=== PATIENT | male | born 1985 | race African-American/Black ===

== ENCOUNTER 2017-07-19 19:09 | Emergency (ER) | payer SELFPAY ==
[2017-07-19 20:54] LABS: KETONE, URINE AUTO RFX TRACE mg/dL (NEGATIVE); LEUKOCYTE ESTERASE UR AUTO RFX 2+ (NEGATIVE); MUCUS, URINE RFX SMALL (NEGATIVE); NITRITE, URINE AUTO RFX NEGATIVE (NEGATIVE); RBC, URINE AUTO RFX 4 /HPF (0-3); SPECIFIC GRAVITY UR AUTO RFX 1.029 (1.002-1.035); SQUAM EPITHELIAL CELL UR AURFX 0 /HPF (0-6); WBC, URINE AUTO RFX 136 /HPF (0-3)
[2017-07-19] MEDS: AZITHROMYCIN 250 MG TAB PO (21:40)
[2017-07-19] MEDS: cefTRIAXone SOD 1 GM VIAL (J0696) IM (21:40)
[2017-07-19 22:22] LABS: CHLAMYDIA DNA AMPLIFICATION NEGATIVE (NEGATIVE); GC DNA AMPLIFICATION POSITIVE (NEGATIVE)
== END 2017-07-19 22:06 | disposition home or self-care (01) ==
LOC: M ED 19:09
DX: Z20.2 Contact with and (suspected) exposure to infections with a predominantly sexual mode of transmission (principal)
CPT/HCPCS: J0696

== ENCOUNTER 2017-08-22 17:12 | Emergency (ER) | payer OTHER, SELFPAY ==
[2017-08-22 17:50] LABS: BASO % 0.2 % (0.0-1.0); EOS # 0.2 10^3/uL (0.0-0.50); EOS % 1.8 % (0.0-3.0); HEMATOCRIT 42.3 % (42.0-52.0); HEMOGLOBIN 14.3 g/dl (14.0-18.0); IMMATURE GRANULOCYTE % 0.5 % (0-3.0); LYMPH # 2.3 10^3/uL (1.5-4.5); LYMPH % 27.7 % (24.0-44.0); MEAN CORPUSCULAR HEMOGLOBIN 28.8 pg (27.0-33.0); MEAN CORPUSCULAR HGB CONC 33.8 g/dl (32.0-36.5); MEAN CORPUSCULAR VOLUME 85.1 fl (80.0-96.0); MONO # 0.5 10^3/uL (0.0-0.8); MONO % 6.3 % (0.0-5.0); NEUTROPHILS # 5.2 10^3/uL (1.8-7.7); NEUTROPHILS % 63.5 % (36.0-66.0); PLATELET COUNT, AUTOMATED 171 10^3/uL (150-450); RED BLOOD COUNT 4.97 10^6/uL (4.30-6.10); WHITE BLOOD COUNT 8.2 10^3/uL (4.0-10.0)
[2017-08-22 18:26] LABS: ALBUMIN 4.2 GM/DL (3.2-5.2); ALBUMIN/GLOBULIN RATIO 1.35 (1.00-1.93); ALKALINE PHOSPHATASE 54 U/L (45-117); ALT/SGPT 36 U/L (12-78); ANION GAP 5 MEQ/L (8-16); AST/SGOT 34 U/L (7-37); BILIRUBIN,TOTAL 0.4 MG/DL (0.2-1.0); BLOOD UREA NITROGEN 19 MG/DL (7-18); CALCIUM LEVEL 9.1 MG/DL (8.5-10.1); CARBON DIOXIDE LEVEL 29 MEQ/L (21-32); CHLORIDE LEVEL 107 MEQ/L (98-107); CREATININE FOR GFR 1.45 MG/DL (0.70-1.30); GLOMERULAR FILTRATION RATE > 60.0 (>60); GLUCOSE, FASTING 83 MG/DL (70-100); POTASSIUM SERUM 4.2 MEQ/L (3.5-5.1); SODIUM LEVEL 141 MEQ/L (136-145); TOTAL PROTEIN 7.3 GM/DL (6.4-8.2)
[2017-08-22 19:42] LABS: HIV 1&2 SCREEN CENTAUR NEGATIVE (NEGATIVE)
[2017-08-25 12:02] LABS: HEPATITIS B SURFACE ANTIBODY NEGATIVE (POSITIVE)
[2017-08-25 12:12] LABS: HEPATITIS B SURFACE ANTIGEN NEGATIVE (NEGATIVE)
[2017-08-25 12:41] LABS: HEPATITIS C VIRUS ABY INDEX 0.1 INDEX (<0.8)
== END 2017-08-22 18:09 | disposition home or self-care (01) ==
LOC: M ED 17:12
DX: Z77.21 Contact with and (suspected) exposure to potentially hazardous body fluids (principal); S60.312A Abrasion of left thumb, initial encounter; W26.8XXA Contact with other sharp object(s), not elsewhere classified, initial encounter; Y92.234 Operating room of hospital as the place of occurrence of the external cause
CPT/HCPCS: 80053

== ENCOUNTER 2018-07-20 21:41 | Emergency (ER) | payer BC ==
[~2018-07-20] VITALS: Ht 172.7 cm; Wt 84.1 kg
[2018-07-20 23:10] LABS: BASO % 0.5 % (0.0-1.0); EOS # 0.1 10^3/uL (0.0-0.50); EOS % 1.6 % (0.0-3.0); HEMATOCRIT 45.9 % (42.0-52.0); HEMOGLOBIN 15.5 g/dl (13.5-17.5); LYMPH # 1.2 10^3/uL (1.5-4.5); LYMPH % 16.4 % (24.0-44.0); MEAN CORPUSCULAR HEMOGLOBIN 28.8 pg (27.0-33.0); MEAN CORPUSCULAR HGB CONC 33.8 g/dl (32.0-36.5); MEAN CORPUSCULAR VOLUME 85.2 fl (80.0-96.0); MONO # 0.7 10^3/uL (0.0-0.8); MONO % 9.8 % (0.0-5.0); NEUTROPHILS # 5.4 10^3/uL (1.8-7.7); NEUTROPHILS % 71.2 % (36.0-66.0); PLATELET COUNT, AUTOMATED 199 10^3/uL (150-450); RED BLOOD COUNT 5.39 10^6/uL (4.30-6.10); WHITE BLOOD COUNT 7.6 10^3/uL (4.0-10.0)
[2018-07-20 23:49] LABS: ALT/SGPT 3893 U/L (12-78); BILIRUBIN,DIRECT 4.4 MG/DL (0.0-0.2); BILIRUBIN,TOTAL 5.5 MG/DL (0.2-1.0); BLOOD UREA NITROGEN 15 MG/DL (7-18); CALCIUM LEVEL 9.3 MG/DL (8.5-10.1); CARBON DIOXIDE LEVEL 29 MEQ/L (21-32); CHLORIDE LEVEL 100 MEQ/L (98-107); CREATININE FOR GFR 1.38 MG/DL (0.70-1.30); GLOMERULAR FILTRATION RATE > 60.0 (>60); GLUCOSE, FASTING 67 MG/DL (70-100); LIPASE 250 U/L (73-393); SODIUM LEVEL 137 MEQ/L (136-145); TOTAL PROTEIN 7.3 GM/DL (6.4-8.2)
[2018-07-21 00:14] LABS: CPK CREATINE PHOSPHOKINASE 632 U/L (39-308)
--- NOTE | 2018-07-21 01:58 | REPVR ---
EXAM: US Abdomen Limited, Right Upper Quadrant EXAM DATE/TIME: 07/21/2018 12:56 AM CLINICAL HISTORY: 32 years old, male; Elevated liver function tests, R/O obstruction TECHNIQUE: Real-time ultrasound of the abdomen with image documentation. Examination was focused on the right upper quadrant. COMPARISON: No relevant prior studies available. FINDINGS: Liver: The echogenicity of the liver is within normal limits. No liver lesion is identified from the images obtained. The contour of the liver is smooth. No hepatomegaly is noted. No intrahepatic biliary ductal dilation is identified. Gallbladder: No gallstones, masses, sonographic Caballero's sign, or pericholecystic fluid. The wall of the gallbladder measures 4 mm in thickness, which is likely secondary to the nonfasting state and lack of full distention of the gallbladder. Common bile duct: No dilation. The common bile that measures 4 mm in diameter at the level of the joselito hepatis. No stones are identified in the imaged portion of the common bile duct. Pancreas: The visualized portion of the head and body of the pancreas is unremarkable. The tail of the pancreas was obscured by intestinal gas and gas in the stomach. Right kidney: The right kidney is normal in appearance and measures 11.4 cm in length. There is no renal cortical thinning. The renal cortical echogenicity is within normal limits. No renal lesion is seen. There is no hydronephrosis. No obvious stones are seen in the renal collecting system. Intraperitoneal space: No free fluid is seen from the images obtained. IMPRESSION: No cholelithiasis, choledocholithiasis, or biliary ductal dilation identified. Electronically signed by: Gee Martell On 07/21/2018 01:58:32 AM
[2018-07-21] MEDS ORDERED: METAL LOCK LOOP XX ONE (02:14)
[2018-07-21 02:34] VITALS: BP 110/63
[2018-07-22 10:01] LABS: HEPATITIS B SURFACE ANTIGEN NEGATIVE (NEGATIVE)
[2018-07-22 10:29] LABS: HEPATITIS C VIRUS ABY INDEX 0.1 INDEX (<0.8)
[2018-07-22 10:30] LABS: HEPATITIS B CORE ANTIBODY IGM NEGATIVE (NEGATIVE)
[2018-07-22 10:31] LABS: HEPATITIS A ANTIBODY IGM NEGATIVE (NEGATIVE)
== END 2018-07-21 02:36 | disposition home or self-care (01) ==
LOC: M ED 21:41
DX: B17.9 Acute viral hepatitis, unspecified (principal); R94.5 Abnormal results of liver function studies; R53.83 Other fatigue; R17 Unspecified jaundice; R11.0 Nausea; L30.9 Dermatitis, unspecified

== ENCOUNTER → 2018-07-20 | Outpatient (REF) | payer BC ==
[2018-07-20 20:28] LABS: APPEARANCE, URINE CLEAR (CLEAR); BACTERIA, URINE AUTO NEGATIVE (NEGATIVE); BILIRUBIN, URINE AUTO NEGATIVE (NEGATIVE); BLOOD, URINE BLOOD NEGATIVE (NEGATIVE); COLOR, URINE YELLOW (YELLOW); GLUCOSE, URINE (UA) AUTO NEGATIVE (NEGATIVE); KETONE, URINE AUTO NEGATIVE (NEGATIVE); LEUKOCYTE ESTERASE, URINE AUTO NEGATIVE (NEGATIVE); NITRITE, URINE AUTO NEGATIVE (NEGATIVE); PROTEIN, URINE AUTO NEGATIVE (NEGATIVE); RBC, URINE AUTO 0 /HPF (0-3); SPECIFIC GRAVITY URINE AUTO 1.006 (1.002-1.035); SQUAMOUS EPITHELIAL CELL UR AU 0 /HPF (0-6); WBC, URINE AUTO 0 /HPF (0-3)
[2018-07-20 20:32] LABS: BASO % 0.5 % (0.0-1.0); EOS # 0.2 10^3/uL (0.0-0.50); HEMATOCRIT 46.4 % (42.0-52.0); HEMOGLOBIN 15.7 g/dl (13.5-17.5); LYMPH # 1.8 10^3/uL (1.5-4.5); LYMPH % 22.3 % (24.0-44.0); MEAN CORPUSCULAR HEMOGLOBIN 28.4 pg (27.0-33.0); MEAN CORPUSCULAR HGB CONC 33.8 g/dl (32.0-36.5); MEAN CORPUSCULAR VOLUME 83.9 fl (80.0-96.0); MONO % 13.2 % (0.0-5.0); NEUTROPHILS # 4.8 10^3/uL (1.8-7.7); NEUTROPHILS % 61.5 % (36.0-66.0); PLATELET COUNT, AUTOMATED 200 10^3/uL (150-450); RED BLOOD COUNT 5.53 10^6/uL (4.30-6.10); WHITE BLOOD COUNT 7.8 10^3/uL (4.0-10.0)
[2018-07-20 20:57] LABS: ALT/SGPT 3641 U/L (12-78); BILIRUBIN,TOTAL 5.1 MG/DL (0.2-1.0); BLOOD UREA NITROGEN 16 MG/DL (7-18); CALCIUM LEVEL 9.3 MG/DL (8.5-10.1); CARBON DIOXIDE LEVEL 29 MEQ/L (21-32); CHLORIDE LEVEL 100 MEQ/L (98-107); CREATININE FOR GFR 1.41 MG/DL (0.70-1.30); GLOMERULAR FILTRATION RATE > 60.0 (>60); GLUCOSE, FASTING 67 MG/DL (70-100); HEPATITIS B SURFACE ANTIGEN NEGATIVE (NEGATIVE); POTASSIUM SERUM 4.4 MEQ/L (3.5-5.1); SODIUM LEVEL 135 MEQ/L (136-145); TOTAL PROTEIN 7.3 GM/DL (6.4-8.2)
[2018-07-20 23:16] LABS: CHLAMYDIA DNA AMPLIFICATION NEGATIVE (NEGATIVE); GC DNA AMPLIFICATION NEGATIVE (NEGATIVE)
[2018-07-22 10:27] LABS: HEPATITIS C VIRUS ABY INDEX 0.1 INDEX (<0.8)
[2018-07-22 10:28] LABS: HEPATITIS B CORE ANTIBODY IGM NEGATIVE (NEGATIVE)
[2018-07-22 10:30] LABS: HEPATITIS A ANTIBODY IGM NEGATIVE (NEGATIVE)
== END ==
LOC: M SFHCLERA 16:49
PROVIDERS: ATTEND Physician Assistant
DX: E80.6 Other disorders of bilirubin metabolism (principal); R82.998 Other abnormal findings in urine

== ENCOUNTER 2018-07-22 17:02 | Inpatient (IN) | payer BC ==
[~2018-07-22] VITALS: Ht 172.7 cm; Wt 84.1 kg
[2018-07-22 18:05] LABS: BASO % 0.5 % (0.0-1.0); EOS # 0.2 10^3/uL (0.0-0.50); EOS % 1.9 % (0.0-3.0); HEMATOCRIT 45.9 % (42.0-52.0); HEMOGLOBIN 15.5 g/dl (13.5-17.5); LYMPH # 2.1 10^3/uL (1.5-4.5); LYMPH % 24.6 % (24.0-44.0); MEAN CORPUSCULAR HEMOGLOBIN 28.7 pg (27.0-33.0); MEAN CORPUSCULAR HGB CONC 33.8 g/dl (32.0-36.5); MONO % 11.6 % (0.0-5.0); NEUTROPHILS # 5.2 10^3/uL (1.8-7.7); NEUTROPHILS % 60.8 % (36.0-66.0); PLATELET COUNT, AUTOMATED 211 10^3/uL (150-450); WHITE BLOOD COUNT 8.6 10^3/uL (4.0-10.0)
[2018-07-22 18:35] LABS: MONO SCRN NEGATIVE (NEGATIVE)
[2018-07-22 18:49] LABS: ALT/SGPT 3309 U/L (12-78); BILIRUBIN,DIRECT 3.6 MG/DL (0.0-0.2); BILIRUBIN,TOTAL 4.3 MG/DL (0.2-1.0); BLOOD UREA NITROGEN 14 MG/DL (7-18); CALCIUM LEVEL 9.3 MG/DL (8.5-10.1); CARBON DIOXIDE LEVEL 30 MEQ/L (21-32); CHLORIDE LEVEL 100 MEQ/L (98-107); CPK CREATINE PHOSPHOKINASE 261 U/L (39-308); CREATININE FOR GFR 1.41 MG/DL (0.70-1.30); GLOMERULAR FILTRATION RATE > 60.0 (>60); GLUCOSE, FASTING 75 MG/DL (70-100); POTASSIUM SERUM 4.1 MEQ/L (3.5-5.1); SODIUM LEVEL 136 MEQ/L (136-145)
--- NOTE | 2018-07-22 19:19 | REPVR ---
EXAM: US Duplex Artery and Vein of the Abdominal and/or Reproductive Organs, Complete EXAM DATE/TIME: 07/22/2018 6:38 PM CLINICAL HISTORY: 32 years old, male; Condition or disease; Other: Elevated lft's; Additional info: Elev liver enzymes R/O hepatic vein thrombosis TECHNIQUE: Real-time duplex ultrasound scan of the arterial and venous flow of the abdominal and/or reproductive organs with B-mode, color Doppler flow and spectral waveform analysis. Complete exam. COMPARISON: No relevant prior studies available. FINDINGS: Portal venous: Normal portal vein measures 1.4 cm. No evidence of thrombosis. Normal velocities. Normal waveforms. Normal flow in the splenic vein. Hepatic veins: Hepatic vein within normal limits. Normal waveforms. Inferior vena cava: Patent. Normal waveforms. Aorta: Normal. Measures 2 x 1.8 cm proximally, 1.7 x 1.5 cm in the mid segment, and 1.6 x 1.6 cm distally. No aneurysm. Normal waveforms. Liver/spleen: Normal flow in hepatic arteries. Normal visualized portions of the hepatic parenchyma. Normal spleen. Common bile duct: Common bile duct measures 6.6 mm. Common hepatic duct measures 7.1 mm. Mild thickening of the gallbladder wall measures 2.3 mm. IMPRESSION: Normal study. Electronically signed by: Álvaro Chino On 07/22/2018 19:19:25 PM
[2018-07-22 19:37] LABS: INR 1.09; PROTHROMBIN TIME 14.2 SECONDS (12.1-14.4)
[2018-07-22] MEDS: NS 1,000 ML IV SCH (19:37)
[2018-07-22 19:40] LABS: ACETAMINOPHEN LEVEL < 2.0 UG/ML (10.0-30.0); ETHYL ALCOHOL (ETHANOL) 0.003 % (0.000-0.010)
[2018-07-22] MEDS ORDERED: ACETAMINOPHEN TAB 650MG DOSE (2X325MG) PO PRN (21:15)
[2018-07-22] MEDS ORDERED: ONDANSETRON 4MG/2ML VIAL (J2405) IV PRN (21:15)
--- NOTE | 2018-07-22 21:21 | HPEPDOC ---
[facility] Medical History & Physical Date of Admission Jul 22, 2018 Other Provider Dictating/admitting: Tina Somers M.D. Attending Physician: KAYE CARDENAS MD History and Physical CHIEF COMPLAINT: Abnormal labs 3 days HISTORY OF PRESENT ILLNESS: Patient is a 32-year-old man with known medical his tory. Comes in with history of abnormal labs. According to him, he was in his usual state of health until 4 days ago when he had upper lip swelling. He went to urgent care and while being evaluated for his upper lip swelling. Labs sent came back with elevated hepatic enzymes. Patient was later asked to follow up in the emergency room. He was also seen in [facility] and also confirmed elevated enzymes hepatic panels sent and patient asked to present in the emergency room for further medical attention. Other than this history, he denies any nausea, vomiting, no fever, no chills, no palpitations, no chest pains, no shortness of breath. No cough. Patient is sexually active and last time was last year. He also gives a history of clean needle stick injury 2 weeks ago. 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 He also reports using Cre-Alkalyn EFX, and energy drinks for workouts. He is an active smoker since age 20 and also give a history of last use of cocaine, July 16. No change in bowel or urinary habits. PAST MEDICAL HISTORY: None PAST SURGICAL HISTORY: None SOCIAL HISTORY: Employment in sterile unit in the hospital. Smokes a pack a day cigarette since age 20 Occasional use of alcohol. Last use was last here May. FAMILY HISTORY: Unknown, patient is adopted ALLERGIES: Please see below. REVIEW OF SYSTEMS: he denies any nausea, vomiting, no fever, no chills, no palpitations, no chest pains, no shortness of breath. No cough. Patient is sexually active and last time was last year. He also gives a history of clean needle stick injury 2 weeks ago. No change in bowel or urinary habits. Other systems reviewed negative. 12 point system review was done. HOME MEDICATIONS: Please see below. PHYSICAL EXAMINATION: VITAL SIGNS: Temperature 98.3, pulse 69, respiratory rate 16, blood pressure 133/69, pulse oximetry 99% on room air. GENERAL APPEARANCE: I see a young man, not in any apparent distress. He is not pale, anicteric and afebrile HEENT: Atraumatic. Neck: Supple. LUNGS: Clear to auscultation bilaterally. CARDIOVASCULAR: S1 and 2 heard, no murmurs, rubs or gallops. ABDOMEN: Obese, soft, not tender, not distended. Bowel sounds normoactive. MUSCULOSKELETAL: Apparently within normal limits. EXTREMITIES: No pedal edema, 2+ bilateral pedal pulses noted. NEUROLOGICAL: Awake, alert, oriented 3. PSYCHIATRIC: Normal affect LABORATORY DATA: See below. IMAGING: Abdominal ultrasonogram: Normal study. EKG: Normal sinus rhythm, no acute ST or T-wave changes seen. MICROBIOLOGY: Please see below. ASSESSMENT: 32-year-old man known medical history. Comes in with new onset hepatitis. Physical exam was unremarkable, labs hepatitis panel sent imaging with normal study. DIAGNOSIS: New onset hepatitis with unclear etiology . PLAN: 1. I will admit patient to the medical floor under care of Dr. Cardenas. 2. I will continue IV fluids to run at 75 mils per hour until patient is reevaluated in the morning tomorrow. 3. GI consult placed to Dr. Webber will see tomorrow. 4. Follow CMP, CBC, hepatitis panel tomorrow. 5. GI prophylaxis not indicated at this time. 6. DVT prophylaxis, TEDs. 7. Further management to be per patient's clinical course. Vital Signs Vital Signs Date Time Temp Pulse Resp B/P (MAP) Pulse Ox O2 Delivery O2 Flow Rate FiO2 07/22/18 19:16 98.3 59 16 133/69 (90) 99 Room Air Laboratory Data Labs 24H Laboratory Tests 2 07/22/18 17:53: Prothrombin Time 14.2, Prothromb Time International Ratio 1.09, Activated Partial Thromboplast Time 30.0, Anion Gap 6L, Glomerular Filtration Rate > 60.0, Calcium Level 9.3, Aspartate Amino Transf (AST/SGOT) 1422H, Alanine Aminotransferase (ALT/SGPT) 3309H, Alkaline Phosphatase 175H, Total Bilirubin 4.3H, Direct Bilirubin 3.6H, Total Creatine Kinase 261, Total Protein 7.0, Albumin 4.0, Albumin/Globulin Ratio 1.33, Acetaminophen Level < 2.0L, Ethyl Alcohol Level 0.003, Monoscreen NEGATIVE 07/22/18 17:54: Immature Granulocyte % (Auto) 0.6, White Blood Count 8.6, Red Blood Count 5.40, Hemoglobin 15.5, Hematocrit 45.9, Mean Corpuscular Volume 85.0, Mean Corpuscular Hemoglobin 28.7, Mean Corpuscular Hemoglobin Concent 33.8, Red Cell Distribution Width 14.7H, Platelet Count 211, Neutrophils (%) (Auto) 60.8, Lymphocytes (%) (Auto) 24.6, Monocytes (%) (Auto) 11.6H, Eosinophils (%) (Auto) 1.9, Basophils (%) (Auto) 0.5, Neutrophils # (Auto) 5.2, Lymphocytes # (Auto) 2.1, Monocytes # (Auto) 1.0H, Eosinophils # (Auto) 0.2, Basophils # (Auto) 0.0, Nucleated Red Blood Cells % (auto) 0.0 CBC/BMP Laboratory Tests 07/22/18 17:53 07/22/18 17:54 Red Blood Count 5.40, Mean Corpuscular Volume 85.0, Mean Corpuscular Hemoglobin 28.7, Mean Corpuscular Hemoglobin Concent 33.8, Red Cell Distribution Width 14.7 H, Neutrophils (%) (Auto) 60.8, Lymphocytes (%) (Auto) 24.6, Monocytes (%) (Auto) 11.6 H, Eosinophils (%) (Auto) 1.9, Basophils (%) (Auto) 0.5, Neutrophils # (Auto) 5.2, Lymphocytes # (Auto) 2.1, Monocytes # (Auto) 1.0 H, Eosinophils # (Auto) 0.2, Basophils # (Auto) 0.0 Home Medications No Active Prescriptions or Reported Meds Allergies Coded Allergies: No Known Allergies (Unverified , 07/19/17) TINA SOMERS MD Jul 22, 2018 21:21
[2018-07-23] MEDS: NS 1,000 ML IV SCH (05:55)
[2018-07-23 06:26] LABS: HEMATOCRIT 41.6 % (42.0-52.0); HEMOGLOBIN 14.2 g/dl (13.5-17.5); MEAN CORPUSCULAR HEMOGLOBIN 28.3 pg (27.0-33.0); MEAN CORPUSCULAR HGB CONC 34.1 g/dl (32.0-36.5); PLATELET COUNT, AUTOMATED 187 10^3/uL (150-450); RED BLOOD COUNT 5.01 10^6/uL (4.30-6.10); WHITE BLOOD COUNT 7.8 10^3/uL (4.0-10.0)
[2018-07-23 07:02] LABS: ALBUMIN 3.1 GM/DL (3.2-5.2); ALT/SGPT 2754 U/L (12-78); BILIRUBIN,TOTAL 3.7 MG/DL (0.2-1.0); BLOOD UREA NITROGEN 12 MG/DL (7-18); CALCIUM LEVEL 8.5 MG/DL (8.5-10.1); CARBON DIOXIDE LEVEL 27 MEQ/L (21-32); CHLORIDE LEVEL 108 MEQ/L (98-107); CREATININE FOR GFR 1.28 MG/DL (0.70-1.30); GLOMERULAR FILTRATION RATE > 60.0 (>60); GLUCOSE, FASTING 82 MG/DL (70-100); POTASSIUM SERUM 4.5 MEQ/L (3.5-5.1); SODIUM LEVEL 140 MEQ/L (136-145)
[2018-07-23] MEDS ORDERED: ENOXAPARIN 40 MG/0.4 ML SYRINGE (J1650) SC SCH (09:00)
--- NOTE | 2018-07-23 14:35 | IPNPDOC ---
Text Note Date of Service The patient was seen on 07/23/18. NOTE Patient is 32-year-old male with no significant past medical history presenting due to elevated liver enzymes. Prior to presentation he was in his usual state of health when he developed upper lip swelling 4 days ago. He went to urgent care for this lab were drawn. He was instructed to present to emergency room for elevated hepatic enzymes. He had no abdominal complaints. Subjective: Patient was examined at bedside. He was pleasant. He had no overnight activity. He denied abdominal pain, denied any breathing difficulty, denies any chest pain, denies any changes in bowel habits PHYSICAL EXAMINATION: VITAL SIGNS: See below GENERAL APPEARANCE: Pleasant gentleman, no acute distress, alert and oriented HEENT: Atraumatic. Neck: Supple. LUNGS: Clear to auscultation bilaterally. CARDIOVASCULAR: S1 and S2 normal ABDOMEN:soft, not tender, not distended. Bowel sounds present MUSCULOSKELETAL: Apparently within normal limits. EXTREMITIES: No edema, no deformities NEUROLOGICAL: Awake, alert, oriented 3. LABORATORY DATA: See below. IMAGING: Abdominal ultrasonogram: Normal study. MICROBIOLOGY: Please see below. ASSESSMENT: 32-year-old man known medical history. Comes in with new onset hepatitis. Physical exam was unremarkable, labs hepatitis panel sent imaging w ith normal study. PLAN: Elevated hepatic enzyme, etiology is unclear at the moment, differential di agnosis include PSC, viral hepatitis, HIV, autoimmune hepatitis, toxic exposure, drug interaction/ adverse effect, IV drug use, hepatitis C, alcohol use (patient denies), Tylenol overdose, and liver shock -GI consult -Patient is euvolemic, no signs of hypovolemia -AST and ALT trended down today. -HIV pending, hepatitis a IgM antibody, hepatitis B antigen, hepatitis, B core IgM antibody, hepatitis C antibody index pending. -Anti-mitochondrial antibody pending -Monscreen negative -Function. C1 esterase inhibitor pending -Toxicology had <2.0 for acetaminophen, and 0.003. Alcohol -IV hydradtion at 75 ml/hr Disposition: We'll continue to trend AST and ALT. If they continue to drop. Patient will be discharged, with instructions to follow-up with GI as an outpatient VS,Fishbone, I+O VS, Fishbone, I+O Laboratory Tests 07/22/18 17:53 07/22/18 17:54 Red Blood Count 5.40, Mean Corpuscular Volume 85.0, Mean Corpuscular Hemoglobin 28.7, Mean Corpuscular Hemoglobin Concent 33.8, Red Cell Distribution Width 14.7 H, Neutrophils (%) (Auto) 60.8, Lymphocytes (%) (Auto) 24.6, Monocytes (%) (Auto) 11.6 H, Eosinophils (%) (Auto) 1.9, Basophils (%) (Auto) 0.5, Neutrophils # (Auto) 5.2, Lymphocytes # (Auto) 2.1, Monocytes # (Auto) 1.0 H, Eosinophils # (Auto) 0.2, Basophils # (Auto) 0.0 07/23/18 05:56 Red Blood Count 5.01, Mean Corpuscular Volume 83.0, Mean Corpuscular Hemoglobin 28.3, Mean Corpuscular Hemoglobin Concent 34.1, Red Cell Distribution Width 14.8 H, Calcium Level 8.5, Aspartate Amino Transf (AST/SGOT) 1254 H, Alanine Aminotransferase (ALT/SGPT) 2754 H, Alkaline Phosphatase 143 H, Total Bilirubin 3.7 H, Total Protein 6.0 L, Albumin 3.1 #L Vital Signs Date Time Temp Pulse Resp B/P (MAP) Pulse Ox O2 Delivery O2 Flow Rate FiO2 07/23/18 13:56 66 18 120/66 (84) 100 Room Air 07/23/18 07:45 98.0 GME ATTESTATION GME ATTESTATION My faculty preceptor for this patient encounter was physically present during the encounter and was fully available. All aspects of the patient interview, examination, medical decision making process, and medical care plan development were reviewed and approved by the faculty preceptor. The faculty preceptor is aware and concurs with the plan as stated in the body of this note and will attest to such by his/her cosignature. STEPHANIE HODGE DO Jul 23, 2018 14:35
[2018-07-23 15:15] VITALS: BP 138/68
--- NOTE | 2018-07-23 15:38 | CR ---
DATE OF CONSULTATION: 07/23/2018 This is a 32-year-old -[place]in[place] male who presents with a history of not feeling well for several weeks. Prior to admission he was having increasing bowel movements and shaking chills and apparently swelling of is lower lip, which brought him to the emergency room (ER). The patient was found to have significant elevation of his liver enzymes. No complaints of abdominal pain. No vomiting. No fevers or weight loss. No melena, hematochezia, or bright red blood per rectum. No complaints of abdominal pain. The patient is adopted, so he has no past family history. The patient is an active smoker since age 20. He does give a history of cocaine use July 16. PAST MEDICAL HISTORY: As above. PAST SURGICAL HISTORY: None. 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 The patient smokes a pack of cigarettes a day since age 20. He last used alcohol in May. FAMILY HISTORY: Again unknown due to the fact that he is adopted ALLERGIES: As above. REVIEW OF SYSTEMS: Noncontributory. PHYSICAL EXAMINATION: GENERAL: This is a well-developed, well-nourished male in no acute distress. Appears stated age. CHEST: Clear to auscultation. CARDIOVASCULAR: Showed a regular rhythm. No murmurs or gallops. Normal physiological split, S1-S2. ABDOMEN: Soft, nontender. No masses, guarding, rebound, hepatosplenomegaly. Bowel sounds positive. LABORATORY STUDIES: On admission showed a white count of 7,800, hemoglobin and hematocrit 14.2 and 41.6. The patient's platelets are 187,000. Coagulation was normal. INR 1.09. Serology testing: Mononucleosis screen was negative. Bile studies are pending. Immunology testing is pending. Alcohol level was negative, and acetaminophen level was negative. The patient presented with the transaminitis with a total bilirubin 4.3, direct bilirubin 3.6, AST of 1422, ALT 3309, alkaline phosphatase was 175, albumin is 4.0. Repeat studies today on 07/23/2018 showed a total bilirubin 3.7, his AST is 1254, his ALT is 2754, and alkaline phosphatase is 143, albumin is 3.1. IMAGING STUDIES: Performed, including an ultrasound of the liver. Ultrasound of liver was a normal study on 07/22/2018. ANALYSIS: Abnormal liver function tests and acute transaminitis with numbers in the thousands. The patient has no history of heavy alcohol abuse or intravenous (IV) drug abuse. The patient has been using supplements, including MBP and Total War, and creatinine increasing for body building reasons. No history of travel. No history of blood transfusions. His family history as far as any medical history of his family is unknown due to the fact that he is adopted. PLAN: Followup his liver functions, which were already starting to trend down. The patient is asymptomatic and eating well. I think he may be followed as an outpatient. I do not feel at this point time that he is contagious. Will see the patient back in the office in 1 week. The patient is advised not to drink any alcohol and avoid any body building dietary supplements until his numbers normalize.
[2018-07-23 22:00] VITALS: BP 129/60
[2018-07-24] MEDS: NS 1,000 ML IV SCH (02:08)
[2018-07-24 06:00] VITALS: BP 116/53
[2018-07-24 06:45] LABS: MEAN CORPUSCULAR HEMOGLOBIN 29.2 pg (27.0-33.0); MEAN CORPUSCULAR HGB CONC 34.1 g/dl (32.0-36.5); MEAN CORPUSCULAR VOLUME 85.6 fl (80.0-96.0); PLATELET COUNT, AUTOMATED 202 10^3/uL (150-450); RED BLOOD COUNT 5.14 10^6/uL (4.30-6.10); WHITE BLOOD COUNT 9.1 10^3/uL (4.0-10.0)
[2018-07-24 07:16] LABS: ALBUMIN 3.2 GM/DL (3.2-5.2); ALT/SGPT 2499 U/L (12-78); BILIRUBIN,TOTAL 3.9 MG/DL (0.2-1.0); BLOOD UREA NITROGEN 11 MG/DL (7-18); CALCIUM LEVEL 8.7 MG/DL (8.5-10.1); CARBON DIOXIDE LEVEL 25 MEQ/L (21-32); CHLORIDE LEVEL 108 MEQ/L (98-107); CREATININE FOR GFR 1.11 MG/DL (0.70-1.30); GLOMERULAR FILTRATION RATE > 60.0 (>60); GLUCOSE, FASTING 87 MG/DL (70-100); POTASSIUM SERUM 4.1 MEQ/L (3.5-5.1); SODIUM LEVEL 139 MEQ/L (136-145); TOTAL PROTEIN 6.3 GM/DL (6.4-8.2)
[2018-07-24 13:12] LABS: HEPATITIS A ANTIBODY IGM NEGATIVE (NEGATIVE); HEPATITIS B CORE ANTIBODY IGM NEGATIVE (NEGATIVE); HEPATITIS B SURFACE ANTIGEN NEGATIVE (NEGATIVE); HEPATITIS C VIRUS ABY INDEX 0.1 INDEX (<0.8)
--- NOTE | 2018-07-24 15:00 | DS.PDOC ---
Discharge Summary General Date of Admission Jul 22, 2018 at 21:03 Date of Discharge 07/24/2018 Primary Care Physician: STEPHANIE HODGE DO Attending Physician: KAYE CARDENAS MD Specialist/Consultants Involve: Carlos Webber Discharge Summary PROCEDURES PERFORMED DURING STAY: Liver ultrasound ADMITTING DIAGNOSES: 1. Elevated Liver enzymes DISCHARGE DIAGNOSES: 1. Elevated liver enzymes, improving COMPLICATIONS/CHIEF COMPLAINT: Elevated Liver Enzymes, Hepatitis. HISTORY OF PRESENT ILLNESS: Patient is a 32-year-old -[place] male whom presented with a history of not feeling well for several. He typically avoids doctors office, and only went to urgent care due to swelling of his lower lip. At urgent care. Laboratory values were taken. He was later called the advice to go to the ER due to elevated liver enzymes. On admission he had no complaints of abdominal pain. No vomiting. No fevers or weight loss. No melena, hematochezia, or bright red blood per rectum. He denied heavy alcohol use, denied drug use. He did admit to using supplements, including MBP and Total War, and creatinine increasing for body building reasons HOSPITAL COURSE: On admission, his AST was 1422, his ALT was 3309. GI was consulted, ultrasound of the liver was normal. Patient had no abdominal complaints, no change in stool habits, no rashes, no jaundice, no changes in vision. During his hospital stay. His AST and ALT was noticed to be trending down. Patient was examined by retail loan originator assistant, who recommended outpatient follow-up. He was advised to stop taking his creatine supplements. BERYL screening, anti-mitochondrial antibody, function C1 esterase inhibitor were pending at discharge. Hepatitis A IgM antibody was negative, hepatitis B antigen was negative, hepatitis core IgM antibody was negative, mono screen was negative, HIV screen was negative. Patient was discharged high spirits. He had no complaints and discharge. DISCHARGE MEDICATIONS: Please see below. ALLERGIES: Please see below. PHYSICAL EXAMINATION ON DISCHARGE: VITALS: See Below GENERAL APPEARANCE: Alert no acute distress. SKIN: Warm, well perfused. ENT: Neck supple, no thyromegaly THORAX: Symmetrical. LUNGS: Clear to auscultation bilaterally. HEART: Normal S1, S2. No murmurs, no rubs, no gallops ABDOMEN: Soft. No masses. Bowel sounds are present. TRUNK/SPINE:Straight. EXTREMITIES: Moves all extremities equally. No gross deformities. PULSES: 2+ upper and lower extremity . LABORATORY DATA: Please see below. IMAGING: Abdominal ultrasound: Normal study PROGNOSIS: Fair ACTIVITY:. Tolerated. DIET: As tolerated, avoid creatine supplements DISCHARGE PLAN: Home DISPOSITION: 01 Home, Self-Care. DISCHARGE INSTRUCTIONS: 1.. Follow-up with GI, follow-up with PCP 2. Of or current supplements. ITEMS TO FOLLOWUP ON ON OUTPATIENT: 1. Liver function enzymes, continue to trend DISCHARGE CONDITION: Stable. TIME SPENT ON DISCHARGE: Greater than 35 minutes. Vital Signs/I&Os Vital Signs Date Time Temp Pulse Resp B/P (MAP) Pulse Ox O2 Delivery O2 Flow Rate FiO2 07/24/18 06:00 98.5 51 15 116/53 (74) 99 07/23/18 13:56 Room Air I&O- Last 24 Hours up to 6 AM 07/24/18 06:00 Intake Total 3735 ml Output Total 2700 ml Balance 1035 ml Laboratory Data Labs 24H Laboratory Tests 2 07/24/18 06:09: Nucleated Red Blood Cells % (auto) 0.0, Anion Gap 6L, Glomerular Filtration Rate > 60.0, Blood Urea Nitrogen 11, Creatinine 1.11, Sodium Level 139, Potassium Level 4.1, Chloride Level 108H, Carbon Dioxide Level 25, Calcium Level 8.7, Aspartate Amino Transf (AST/SGOT) 1074H, Alanine Aminotransferase (ALT/SGPT) 2499H, Alkaline Phosphatase 149H, Total Bilirubin 3.9H, Total Protein 6.3L, Albumin 3.2, Albumin/Globulin Ratio 1.03 CBC/BMP Laboratory Tests 07/24/18 06:09 Red Blood Count 5.14, Mean Corpuscular Volume 85.6, Mean Corpuscular Hemoglobin 29.2, Mean Corpuscular Hemoglobin Concent 34.1, Red Cell Distribution Width 14.9 H, Calcium Level 8.7, Aspartate Amino Transf (AST/SGOT) 1074 H, Alanine Aminotransferase (ALT/SGPT) 2499 H, Alkaline Phosphatase 149 H, Total Bilirubin 3.9 H, Total Protein 6.3 L, Albumin 3.2 Discharge Medications No Active Prescriptions or Reported Meds Allergies Coded Allergies: No Known Allergies (Unverified , 07/19/17) GME ATTESTATION GME ATTESTATION My faculty preceptor for this patient encounter was physically present during the encounter and was fully available. All aspects of the patient interview, examination, medical decision making process, and medical care plan development were reviewed and approved by the faculty preceptor. The faculty preceptor is aware and concurs with the plan as stated in the body of this note and will attest to such by his/her cosignature. STEPHANIE HODGE DO Jul 24, 2018 15:00
[2018-07-25 00:06] LABS: LIVER-KIDNEY MICROSOMAL ABY <20.1 Units (0.0-20.0)
[2018-07-27 14:16] LABS: ANTI DOUBLE STRAND-DNA AB 3 IU/mL (0-9); ANTINUCLEAR ANTIBODIES DIRECT Positive (Negative); C1 ESTERASE INHIB. FUNCTIONAL 103 (.); RNP ANTIBODIES 0.2 AI (0.0-0.9); SJOGREN'S ANTI SS-A 6.6 AI (0.0-0.9); SJOGREN'S ANTI SS-B <0.2 AI (0.0-0.9); SMITH ANTIBODIES <0.2 AI (0.0-0.9)
== END 2018-07-24 10:30 | disposition home or self-care (01) | DRG 861 ==
LOC: M ED 17:02 → M ED INP 21:03 → M MSPAV 07-23 15:15
PROVIDERS: ADMIT Hospitalist; ATTEND Internal Medicine
DX: R74.0 Nonspecific elevation of levels of transaminase and lactic acid dehydrogenase [LDH] (principal); F17.210 Nicotine dependence, cigarettes, uncomplicated

== ENCOUNTER 2018-11-03 22:48 | Emergency (ER) | payer OTHER, BC ==
[~2018-11-03] VITALS: Ht 175.3 cm; Wt 84.1 kg
[2018-11-03 22:49] VITALS: BP 132/76
[2018-11-03] MEDS ORDERED: METAL LOCK LOOP XX ONE (23:06)
--- NOTE | 2018-11-04 11:52 | REP ---
LEFT HAND, FOUR VIEWS: There is no evidence of an acute fracture, dislocation or intrinsic bone disease. IMPRESSION: No fracture or dislocation. Electronically Signed by Jose Bird MD 11/05/2018 10:51 A
== END 2018-11-04 00:05 | disposition home or self-care (01) ==
LOC: M ED 22:48
DX: S63.92XA Sprain of unspecified part of left wrist and hand, initial encounter (principal); V49.40XA Driver injured in collision with unspecified motor vehicles in traffic accident, initial encounter; Y92.410 Unspecified street and highway as the place of occurrence of the external cause

== ENCOUNTER → 2019-02-04 | Outpatient (REF) | payer BC ==
[2019-02-05 13:34] LABS: CHLAMYDIA DNA AMPLIFICATION NEGATIVE (NEGATIVE); GC DNA AMPLIFICATION NEGATIVE (NEGATIVE)
== END ==
LOC: M SFHCLERA 19:25
PROVIDERS: ATTEND Nurse Practitioner Family
DX: J02.9 Acute pharyngitis, unspecified (principal)

== ENCOUNTER → 2021-05-08 | Outpatient (REF) | payer BC ==
[2021-05-09 13:24] LABS: GC DNA AMPLIFICATION POSITIVE (NEGATIVE)
== END ==
LOC: M LAB REF 10:48
PROVIDERS: ATTEND Physician Assistant
DX: R30.0 Dysuria (principal)

== ENCOUNTER → 2022-01-14 | Outpatient (REF) | payer SELFPAY ==
[2022-01-14 20:54] LABS: GC DNA AMPLIFICATION NEGATIVE (NEGATIVE)
== END ==
LOC: M WUC 19:07
PROVIDERS: ATTEND Physician Assistant
DX: R30.0 Dysuria (principal)